=== PATIENT | male | born 2000 | race Caucasian/White ===

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

== ENCOUNTER 2019-08-19 10:36 | Emergency (ER) | payer BC ==
[2019-08-19 10:41] VITALS: RESP 18; TEMP 98
[2019-08-19] MEDS ORDERED: FLUORESCEIN STRIPS 1 MG STRIP RIGHT EYE ONE (10:43)
[2019-08-19] MEDS ORDERED: PROPARACAINE 0.5% OPHTH DROPS 15 ML BTL RIGHT EYE STA (10:43)
--- NOTE | 2019-08-19 11:10 | ED ---
Eye Problem HPI - General Chief complaint: Eye Problems Stated complaint: foreign body rt eye Time Seen by Provider: 08/19/19 10:42 Source: patient Mode of arrival: ambulatory Limitations: no limitations - History of Present Illness Initial comments: Patient is a 18-year-old male presenting to the emergency Department with complaints of a possible foreign body in his right eye. Patient states he thinks a few pieces of sawdust went into his right eye yesterday while he was working. He states he did try to flush the eye out yesterday but today he woke up and it feels really irritated and has been watering nonstop. He denies any changes in vision, significant eye pain. He states it just feels really irritated. He denies wearing contact lens. He denies any other trauma to the eye. He has no further complaints at this time. Upon arrival to the ER his vitals are stable. - Related Data Home Medications Medication Instructions Recorded Confirmed [id number] 1 - 2 tab PO DAILY 03/05/16 03/05/16 [Excedrin] Previous Rx's Medication Instructions Recorded Erythromycin Ophth Oint [Romycin 1 applic RIGHT EYE QID 5 Days #1 08/19/19 Ophth Oint] tube Allergies Allergy/AdvReac Type Severity Reaction Status Date / Time venom-honey bee Allergy Anaphylaxis Verified 08/19/19 10:41 [bee venom (honey bee)] Review of Systems ROS Statement: Those systems with pertinent positive or pertinent negative responses have been documented in the HPI. ROS Other: All systems not noted in ROS Statement are negative. Past Medical History Past Medical History: No Reported History History of Any Multi-Drug Resistant Organisms: None Reported Past Surgical History: No Surgical Hx Reported Past Psychological History: No Psychological Hx Reported Smoking Status: Never smoker Past Alcohol Use History: None Reported Past Drug Use History: None Reported General Exam - General Exam Comments Initial Comments: GENERAL: Well-appearing, well-nourished and in no acute distress. HEAD: Atraumatic, normocephalic. EYES: Pupils equal round and reactive to light, extraocular movements intact, sclera anicteric, conjunctiva are normal. Active clear drainage from right eye, under fluorescein stain there is a very small corneal abrasion on the lower part of the lower eyelid. ENT: TMs normal, nares patent, oropharynx clear without exudates. Moist mucous membranes. NECK: Normal range of motion, supple without lymphadenopathy or JVD. LUNGS: Breath sounds clear to auscultation bilaterally and equal. No wheezes rales or rhonchi. HEART: Regular rate and rhythm without murmurs, rubs or gallops. ABDOMEN: Soft, nontender, normoactive bowel sounds. No guarding, no rebound. No masses appreciated. : Deferred EXTREMITIES: Normal range of motion, no pitting or edema. No clubbing or cyanosis. NEUROLOGICAL: Normal speech, normal gait. PSYCH: Normal mood, normal affect. SKIN: Warm, Dry, normal turgor, no rashes or lesions noted. Limitations: no limitations Course Vital Signs 08/19/19 10:38 Temperature 98 F Pulse Rate 76 Respiratory 18 Rate Blood Pressure 119/81 O2 Sat by Pulse 100 Oximetry Medical Decision Making - Medical Decision Making Patient is a 18-year-old male presenting with right eye irritation since yesterday after getting sawdust in his eye. On exam, reveals a small corneal abrasion on the very lower aspect of the right thigh, into the right lower eyelid. Patient had significant relief with proparacaine drops. We did flush the eye again. Patient will be placed on antibiotic ointment. He'll follow up with eye doctor if symptoms do not improve. He is stable for discharge. Return parameters were discussed with the patient he verbalizes understanding. Case discussed with Dr. Gabriel. Disposition Clinical Impression: Corneal abrasion, right Disposition: HOME SELF-CARE Condition: Stable Instructions (If sedation given, give patient instructions): Corneal Abrasion (ED) Additional Instructions: Please return to the Emergency Department if symptoms worsen or any other concerns. Use antibiotic ointment as prescribed. Follow-up with eye doctor symptoms persist after 2-3 days. Prescriptions: Erythromycin Ophth Oint [Romycin Ophth Oint] 1 applic RIGHT EYE QID 5 Days #1 tube Is patient prescribed a controlled substance at d/c from ED?: No Referrals: None,Stated [Primary Care Provider] - 1-2 days
[2019-08-19 11:24] VITALS: BP 104/85; PULSE 72
== END 2019-08-19 11:15 | disposition home or self-care (01) ==
LOC: EC 10:36
DX: S05.01XA Injury of conjunctiva and corneal abrasion without foreign body, right eye, initial encounter (principal); Z91.030 Bee allergy status; X58.XXXA Exposure to other specified factors, initial encounter; Y93.89 Activity, other specified; Y92.009 Unspecified place in unspecified non-institutional (private) residence as the place of occurrence of the external cause
CPT/HCPCS: 99283

== ENCOUNTER 2021-04-30 05:56 | Emergency (ER) | payer BC ==
[2021-04-30 06:03] VITALS: BP 130/82; PULSE 78; RESP 18; TEMP 98
[2021-04-30] MEDS ORDERED: MAG HYDROX/AL HYDROX/SIMETH 30 ML, HYOSCYAMINE ELIXIR 10 ML, LIDOCAINE VISCOUS 2% 10 ML PO STA ×3 (06:24)
--- NOTE | 2021-04-30 06:44 | ED ---
General Adult HPI - General Chief complaint: Chest Pain Stated complaint: Chest Pain Time Seen by Provider: 04/30/21 06:09 Source: patient Mode of arrival: ambulatory - History of Present Illness Initial comments: 20-year-old male presents to the emergency room for a chief complaint of epigastric pain. Patient states he was on his way to work about an hour before arrival. He states he suddenly started to feel a dull squeezing pain in his epigastric area and lower chest. States it felt like he was hungry but worse. Patient states the pain was about a 6 out of 10. Patient states he drove back home and his mother told him to put his arms above his head on the way to the hospital because when his father gets reflux this helps. Patient did try this and this did decrease his pain is 3 out of 10. States he is only having mild discomfort at this time. He states during the initial episode he started to feel like he couldn't get a deep breath however did not have any pain with breathing in this has resolved. Patient has not had anything to eat yet today. Patient denies fevers. He denies nausea vomiting diarrhea. Denies any lower abdominal pain.Patient has no other complaints at this time including shortness of breath, nausea or vomiting, headache, or visual changes. - Related Data Home Medications Medication Instructions Recorded Confirmed [id number] 1 - 2 tab PO DAILY 03/05/16 03/05/16 [Excedrin] Previous Rx's Medication Instructions Recorded Erythromycin Ophth Oint [Romycin 1 applic RIGHT EYE QID 5 Days #1 08/19/19 Ophth Oint] tube Famotidine [Pepcid] 20 mg PO BID #60 tablet 04/30/21 Allergies Allergy/AdvReac Type Severity Reaction Status Date / Time venom-honey bee Allergy Anaphylaxis Verified 04/30/21 06:39 [bee venom (honey bee)] Review of Systems ROS Statement: Those systems with pertinent positive or pertinent negative responses have been documented in the HPI. ROS Other: All systems not noted in ROS Statement are negative. Past Medical History Past Medical History: No Reported History History of Any Multi-Drug Resistant Organisms: None Reported Past Surgical History: No Surgical Hx Reported Past Psychological History: No Psychological Hx Reported Smoking Status: Never smoker Past Alcohol Use History: None Reported Past Drug Use History: None Reported General Exam General appearance: alert, in no apparent distress Head exam: Present: atraumatic Eye exam: Present: normal appearance, PERRL, EOMI. Absent: scleral icterus, conjunctival injection ENT exam: Present: normal exam, mucous membranes moist Neck exam: Present: normal inspection, full ROM Respiratory exam: Present: normal lung sounds bilaterally. Absent: respiratory distress, wheezes Cardiovascular Exam: Present: regular rate, normal rhythm, normal heart sounds GI/Abdominal exam: Present: soft, tenderness (Mild epigastric tenderness however no lower abdominal tenderness. No right upper quadrant tenderness. Negative Roman sign. No tenderness at McBurney's point.), normal bowel sounds. Absent: distended, guarding, rebound, rigid Course Vital Signs 04/30/21 06:00 Temperature 98 F Pulse Rate 78 Respiratory 18 Rate Blood Pressure 130/82 O2 Sat by Pulse 98 Oximetry EKG Findings - EKG Comments: EKG Findings:: Normal sinus rhythm, ventricular rate 67, IN interval 116, QTc 434 Medical Decision Making - Medical Decision Making Vitals are stable. Patient is well appearing. No acute distress. EKG is nonischemic. HPI and physical exam as documented. Chest x-ray shows no acute process. Patient was given GI cocktail which did help his pain, is now a 2 out of 10. I did suggest blood work however patient refuses. At this time patient can be discharged home to follow up with primary care and GI. We will try Pepcid. He will return here for any worsening symptoms. I discussed this case with attending Dr. Borden who agrees with this assessment and treatment plan. Disposition Clinical Impression: Epigastric pain Disposition: HOME SELF-CARE Condition: Good Instructions (If sedation given, give patient instructions): Diet for Stomach Ulcers and Gastritis (ED), GERD (Gastroesophageal Reflux Disease) (ED) Additional Instructions: Take medication as directed. Modifying your diet for GERD with instructions included. Follow-up with primary care or GI. Return to the emergency room for any worsening symptoms. Prescriptions: Famotidine [Pepcid] 20 mg PO BID #60 tablet Is patient prescribed a controlled substance at d/c from ED?: No Referrals: Verónica Schmitt III, MD [STAFF PHYSICIAN] - 1-2 days Lakeshia Sandoval MD [STAFF PHYSICIAN] - 1-2 days Time of Disposition: 07:14
--- NOTE | 2021-04-30 06:45 | XR ---
EXAMINATION TYPE: XR chest 2V DATE OF EXAM: 04/30/2021 COMPARISON: NONE HISTORY: Chest pain. TECHNIQUE: Frontal and lateral views of the chest are obtained. FINDINGS: There is no focal air space opacity, pleural effusion, or pneumothorax seen. The cardiac silhouette size is within normal limits. The osseous structures are intact. Overlying EKG leads. IMPRESSION: No acute process.
[2021-04-30] MEDS ORDERED: FAMOTIDINE 20 MG TAB PO STA (07:13)
== END 2021-04-30 07:52 | disposition home or self-care (01) ==
LOC: EC 05:56
DX: R10.13 Epigastric pain (principal)
CPT/HCPCS: 71046; 93005; 99284